=== PATIENT | female | born 1965 | race Caucasian/White ===

== ENCOUNTER 2017-03-12 18:52 | Emergency (ER) | payer OTHER ==
[~2017-03-12] VITALS: Ht 157.5 cm; Wt 77.2 kg
[2017-03-12 18:55] VITALS: Ht 157.5 cm; Wt 77.2 kg
[2017-03-12] MEDS ORDERED: BEN50 PO (19:07)
[2017-03-12] MEDS ORDERED: PRED50TA PO (19:07)
--- NOTE | 2017-03-12 19:13 | ERD ---
ER Documentation Chief Complaint Date/Time DATE: 03/12/17 TIME: 19:10 Chief Complaint facialswelling x 2 days after appliocation of hair dye HPI 51-year-old female presents to emergency department for complaints of itching, facial swelling after application of hair dye 2 days ago. Patient has already had a reaction from this before, now facial swelling with this. Patient denies any lip swelling or tongue Swelling or Stridor. Patient without Any Shortness of Breath or Wheezing. Patient Denies Any Fever or Chills. Patient did did not take medications to help with symptoms. ROS All systems reviewed and are negative except as per history of present illness. Medications Home Meds Active Scripts Prednisone* (Prednisone*) 50 Mg Tablet, 50 MG PO DAILY, #5 TAB Prov:JIN MORA NP 03/12/17 Diphenhydramine Hcl* (Benadryl*) 50 Mg Cap, 50 MG PO Q6H Y for ITCHING/RASH, # 30 CAP Prov:JIN MORA NP 03/12/17 Allergies Allergies: Coded Allergies: No Known Allergy (Unverified , 03/12/17) PMhx/Soc Medical and Surgical Hx: pt denies Medical Hx, pt denies Surgical Hx FmHx Family History: No coronary disease, No diabetes, No other Physical Exam Vitals Vital Signs Date Time Temp Pulse Resp B/P Pulse Ox O2 Delivery O2 Flow Rate FiO2 03/12/17 18:55 98.3 94 20 168/84 100 Physical Exam GENERAL: The patient is well developed and appropriate for usual state of health, in no apparent distress. CHEST: Clear to auscultation bilaterally. There are no rales, wheezes or rhonchi. HEART: Regular rate and rhythm. No murmurs, clicks, rubs or gallops. No S3 or S4. ABDOMEN: Soft, nontender and nondistended. Good bowel sounds. No rebound or guarding. No gross peritonitis. No gross organomegaly or masses. No Camacho sign or McBurney point tenderness. BACK: No midline or flank tenderness. EXTREMITIES: Equal pulses bilaterally. There is no peripheral clubbing, cyanosis or edema. No focal swelling or erythema. Full range of motion. Grossly neurovascularly intact. NEURO: Alert and oriented. Cranial nerves 2-12 intact. Motor strength in all 4 extremities with 5/5 strength. Sensation grossly intact. Normal speech and gait. SKIN: There is maculopapular rash in the facial area in the forehead area. There is no apparent ecchymosis or petechia. The skin is warm and dry. No lip swelling, no tongue swelling, no angioedema noted. HEMATOLOGIC AND LYMPHATIC: There is no evidence of excessive bruising or lymphedema. No gross cervical, axillary, or inguinal lymphadenopathy. Procedures/MDM Medical decision making: Patient symptoms is likely consistent with an allergic reaction to the hair dye, no symptoms of anaphylactic shock. No angioedema noted. Patient was given for Benadryl, prednisone, is advised to avoid using hair dye anymore. Patient was advised to follow with primary care doctor in 2-3 days for reevaluation symptoms. Patient is advised to return to emergency department for any worsening symptoms. Departure Diagnosis: Primary Impression: Allergic reaction to chemical substance Encounter type: initial encounter Injury intent: accidental or unintentional Qualified Code: T65.91XA - Allergic reaction to chemical substance, accidental or unintentional, initial encounter Condition: Stable Patient Instructions: Allergic Reaction, Other (General) JIN MORA NP March 12, 2017 19:13
== END 2017-03-12 19:09 | disposition home or self-care (01) ==
LOC: E/R 18:52
DX: T65.91XA Toxic effect of unspecified substance, accidental (unintentional), initial encounter (principal)